=== PATIENT | male | born 1975 | race African-American/Black ===

== ENCOUNTER → 2020-08-21 | Outpatient (CLI) | payer BC ==
--- NOTE | 2020-08-21 16:42 | KCIC ---
Bilateral lower extremity arterial ultrasound History:Poor circulation, bilateral claudication Findings: Multiple grayscale, color, and duplex spectral analysis sonographic images were acquired of the lower extremity arteries bilaterally. There are no previous similar exams. There is scattered plaque bilaterally. There are abnormal monophasic waveforms throughout the lower extremity arteries bilaterally. No vessel occlusion is demonstrated. There are are relatively increased velocities of the anterior tibial arteries bilaterally compared with the more proximal vessels. Velocities in cm/sec: RIGHT Common femoral artery 170 Profunda femoris artery 82 Proximal SFA 171 Mid SFA 106 Distal SFA 99 Popliteal artery 96 Posterior tibial artery 109 Peroneal artery 34 Anterior tibial artery 113 Dorsalis pedis artery 96 LEFT: Common femoral artery 149 Profunda femoris artery 123 Proximal SFA 173 Mid SFA 124 Distal SFA 102 Popliteal artery 76 Posterior tibial artery 95 Peroneal artery 66 Anterior tibial artery 110 Dorsalis pedis artery 103 Impression: 1. There are diffuse abnormal monophasic waveforms throughout the lower extremities bilaterally, also scattered plaque. There could be a component of inflow disease. No vessel occlusion is demonstrated. There are increased velocities of anterior tibial arteries bilaterally suggestive of more proximal stenoses. Electronically signed by: Jim Santacruz MD (08/21/2020 4:40 PM) [facility] CENTERSimone
== END ==
LOC: KCIC US 15:21
PROVIDERS: ATTEND Family Medicine
DX: R09.89 Other specified symptoms and signs involving the circulatory and respiratory systems (principal); I73.9 Peripheral vascular disease, unspecified
CPT/HCPCS: 93925

== ENCOUNTER → 2020-09-21 | Outpatient (CLI) | payer BC ==
[~2020-09-21] VITALS: Ht 167.6 cm; Wt 102.1 kg
[~2020-09-21] MED LIST: INSU100V8 SQ; LISI10TA2 PO; REGADENOSON 0.4 MG/5 ML DISP.SYRIN. IV ONE
--- NOTE | 2020-09-21 15:42 | RAD ---
MR#: [id number] Date of Study: 09/21/2020 Ordering Physician: NICOLAS COX, Referring Physician: JONATHAN LUNA Tech: JEANETTE Xiao ARRT (R) (N) APPROVED REPORT Test Type: Pharmacological Stress Nurse/Tech: Dena Jorge RN Test Indications: Chest Pain Cardiac History: HTN, See EMR Medications: See EMR Medical History: DM, See EMR Resting ECG: SR Resting Heart Rate: 70 bpm Resting Blood Pressure: 141/79mmHg Pretest Chest Pain: No chest pain Nurse/Tech Notes Lungs CTA, Heart tones regular. Consent: The procedure was explained to the patient in lay terms. Informed consent was witnessed. Jhonny eout was entered into [employer]. History and Stress Test performed by RT Manuel (R) (N) Pharm. Details Pharmacologic stress testing was performed using 0.4mg per 5ml of regadenoson given intravenously ove r 7-10 seconds. Stress Symptoms No chest pain or symptoms. POST EXERCISE Reason for Termination: Infusion complete Max HR: 86 bpm Max Blood Pressure: 126/73mmHg Blood Pressure response to exercise: Normal blood pressure response during stress. Heart Rate response to exercise: WNL Chest Pain: No. Arrhythmia: No. ST Change: No. INTERPRETATION Stress EKG Conclusion: The resting EKG shows a mild sinus arrhythmia with minimal ST changes in the i nferior leads. The stress EKG shows no significant changes from baseline. No EKG evidence of stress-induced ischemia. Imaging Protocol IMAGE PROTOCOL: Rest Tc-99m/stress Tc-99m 1 day Rest: Stress: Viability: Radiopharm.Tc99m [id number] Sestamibi Urlc66xLg 31.2mCi Img Date 09/21/2020 09/21/2020 Inj-Img Trdv52xuv. 60min. Rest Admin Site:IV - Left AntecubitalAdministrator:JEANETTE Xiao, ANGELIKA (R)(N) Stress Admin Site: IV - Left AntecubitalAdministrator: RT Floridalma BlakeR)(N) STRESS DATA End Diast. Vol.103.0mlAv. Heart Rate73.0bpm End Syst. Vol.31.0mlCO Index BSA0.0L/min Myocardial Ggmz334.0gEject. Sxjedxkh85.0% Stress Rates Pk. Fill Rate3.27EDV/secLVtime Pk. Fill 193.62msec Pk. Empty Rate4.47ESV/secLVtime Pk. Xljuw129.10msec 1/3 Pk. Fill0.94EDV/sec Stress Scores Regional WT0.00Summed WT4.00 Regional WM0.00Summed WM1.00 LV Perfusion The stress scans showed no significant defects. The rest scans showed no significant defects. Nuclear imaging shows no reversible ischemia or infarct. Wall Motion Normal left ventricular systolic function with no regional wall motion abnormalities and an ejection fraction of greater than 70%. LV Perf. Quant 17 Seg. SSS0.00 17 Seg. SRS0.00 17 Seg. SDS0.00 Stress Defect Extent (% LAD)0.00Rest Defect Extent (% LAD)0.00Rev. Defect Extent (% LAD)0.00 Stress Defect Extent (% LCX) 0.00Rest Defect Extent (% LCX)0.00Rev. Defect Extent (% LCX)0.00 Stress Defect Extent (% RCA)0.00Rest Defect Extent (% RCA)0.00Rev. Defect Extent (% RCA)0.00 Stress Defect Extent (% SHAI)0.00Rest Defect Extent (% SHAI)0.00Rev. Defect Extent (% SHAI)0.00 Conclusion 1. No EKG evidence of stress-induced ischemia. 2. Nuclear imaging shows no reversible ischemia or infarct. 3. Normal left ventricular systolic function with an ejection fraction of greater than 70%. 4. Low risk Lexiscan nuclear stress test. Signed by : Arturo Walton MD Electronically Approved : 09/21/2020 15:41:35
== END ==
LOC: NM 09:27
PROVIDERS: ATTEND Internal Medicine Cardiovascular Disease
DX: I10 Essential (primary) hypertension (principal); I73.9 Peripheral vascular disease, unspecified
CPT/HCPCS: 78452; 93017; A9500; J2785

== ENCOUNTER 2020-09-24 07:08 | Outpatient (CLI) | payer BC ==
[~2020-09-24] VITALS: Ht 167.6 cm; Wt 102.1 kg
[2020-09-24] VITALS (11 sets, daily range): BP systolic 96–128; BP diastolic 58–96
[~2020-09-24 07:08] MED LIST changes: -REGADENOSON 0.4 MG/5 ML DISP.SYRIN. IV ONE
[2020-09-24] MEDS ORDERED: LIDOCAINE 1% Multi-Dose 20 ML VIAL. ONE (07:32)
[2020-09-24] MEDS ORDERED: IODIXANOL 320 MG/ML 100 ML VIAL. ONE (07:32)
[2020-09-24 07:59] LABS: HEMATOCRIT 44.3 % (39.0-53.0); HEMOGLOBIN 14.9 g/dL (13.0-17.5); RED BLOOD COUNT 5.28 x10^6/uL (4.30-5.70); RED CELL DISTRIBUTION WIDTH 14.7 % (11.5-14.5); WHITE BLOOD COUNT 7.8 x10^3/uL (4.0-11.0)
[2020-09-24 08:01] LABS: GFR 80.1; POTASSIUM 3.9 mmol/L (3.5-5.1)
[2020-09-24 08:12] LABS: PROTHROMBIN TIME PATIENT 12.8 SEC (11.7-14.0)
[2020-09-24] MEDS ORDERED: LISI1TAB37 PO (08:18)
[2020-09-24] MEDS ORDERED: INSU100I13 SQ (08:18)
[2020-09-24] MEDS ORDERED: INSU100I17 SQ (08:18)
[2020-09-24] MEDS ORDERED: ATOR40TA PO (08:18)
[2020-09-24] MEDS ORDERED: FENO145T3 PO (08:18)
[2020-09-24] MEDS ORDERED: fentaNYL PF VIAL 250 MCG/5 ML VIAL ONE (08:39)
[2020-09-24] MEDS ORDERED: MIDAZOLAM HCL/PF 5 MG/5 ML VIAL. ONE (08:39)
[2020-09-24] MEDS ORDERED: HEPARIN for IV BOLUS 10,000 UNIT/10 ML VIAL. ONE (08:40)
[2020-09-24] MEDS ORDERED: VERAPAMIL 5 MG/2 ML VIAL. ONE (08:40)
[2020-09-24] MEDS ORDERED: NITROGLYCERIN 200 MCG/2 ML SYRINGE FOR CATH/VASC LAB. ONE (08:40)
[2020-09-24] MEDS ORDERED: fentaNYL PF VIAL 250 MCG/5 ML VIAL IV ONE (09:00)
[2020-09-24] MEDS ORDERED: NITROGLYCERIN 200 MCG/2 ML SYRINGE FOR CATH/VASC LAB. IART ONE (09:00)
[2020-09-24] MEDS ORDERED: IODIXANOL 320 MG/ML 100 ML VIAL. IART ONE (09:00)
[2020-09-24] MEDS ORDERED: LIDOCAINE 1% Multi-Dose 20 ML VIAL. INJ ONE (09:00)
[2020-09-24] MEDS ORDERED: VERAPAMIL 5 MG/2 ML VIAL. IART ONE (09:00)
[2020-09-24] MEDS ORDERED: MIDAZOLAM HCL/PF 5 MG/5 ML VIAL. IV ONE (09:00)
[2020-09-24] MEDS ORDERED: HEPARIN for IV BOLUS 10,000 UNIT/10 ML VIAL. IART ONE (09:00)
--- NOTE | 2020-09-24 09:38 | PDOC ---
MODERATE SEDATION ASSESSMENT RISKS/ALTERNATIVES Risks/Alternatives Risks and alternatives of this type of sedation and procedure discussed with: RISK/ALTERNATIVES: Patient H & P ON CHART H & P H & P on chart and reviewed for co-morbid conditions and appropriate labs. H&P ON CHART: Yes STATUS PREG STATUS ASSESSED: N/A MEDS/ALLERGIES REVIEWED Meds/Allergies Reviewed Medications and Allergies including time and route of recently administered narcotics and sedatives. MEDS/ALLERGIES REVIEWED: Yes ASA RATING ASA RATING: II AIRWAY ASSESSMENT Airway Assessment Airway patency, oral function limitations, presence of caps, crowns, dentures, partials, and ability to extend neck assessed. AIRWAY ASSESSMENT: Yes MALLAMPATI SCORE MALLAMPATI SCORE: II PRE-SEDATION ASSESSMENT PRE-SEDATION ASSESSMENT: Yes NICOLAS COX MD Sep 24, 2020 09:38
[2020-09-24] MEDS ORDERED: IV 1/2 NORMAL SALINE 1,000 ML IV SCH (10:00)
--- NOTE | 2020-09-24 10:05 | CARD ---
MR#: [id number] Date of Study: 09/24/2020 Ordering Physician: NICOLAS KERN, Referring Physician: NICOLAS KERN Tech: Deannamarissa Erazo APPROVED REPORT Patient StatusOUT-PATIENT Medical Appointment Scheduler: Deanna Erazo Procedure(s) performed: Aortogram with bilateral lower extremity runoff fl time: 7.6 min dose: 84 gycm2 contrast: 69 ml moderate sedation: 48 mins INDICATION FOR PROCEDURE The indication(s) include : Leg pain, abnormal arterial duplex scan suggestive of significant periphe ral artery disease. PROCEDURE NARRATIVE After explaining the risk, benefits and alternative options, informed consent was obtained from patie nt. Patient was brought to the cardiac [employer] and his left wrist was prepped and draped in the usu al fashion after confirming a positive modified Markus's test. Arterial access was obtained in the le ft radial artery and a 6 Irish sheath was inserted. 6 Irish PV Multicurve catheter was then advanc ed under fluoroscopy guidance and with the tip positioned in the descending aorta, aorto iliac angiog cuco was performed. The catheter was then advanced into the right lower extremity and with the tip positioned in the right superficial femoral artery, selective right lower extremity angiography was p erformed. The catheter was retracted and then advanced into the left superficial femoral artery and selective left lower extremity angiography was performed. Patient tolerated the procedure well. Hem ostasis was achieved using TR band. There were no immediate complications. FINDINGS 1. No significant stenosis involving the distal descending aorta. 2. No significant stenosis involving bilateral common and external iliac arteries. 3. No significant stenosis involving bilateral common femoral arteries. The right superficial femor al artery showed 50% stenosis in the distal segment. The left superficial femoral artery did not william w any significant stenosis. 4. The popliteal arteries bilaterally did not show any significant stenosis. 5. There is three-vessel runoff below the knee bilaterally. Conclusion 50% stenosis involving the right superficial femoral artery without any lesions needing intervention. Recommendations Vascular risk factor modification. Signed by : Nicolas Kern, Electronically Approved : 09/24/2020 10:04:50
[2020-09-24] MEDS ORDERED: oxyCODONE/APAP 5/325 1 TAB TABLET ONE (10:07)
[2020-09-24] MEDS ORDERED: oxyCODONE/APAP 5/325 1 TAB TABLET PO ONE (10:15)
--- NOTE | 2020-09-24 12:21 | NUR ---
Discharge Note: PATRICIA ENNIS [facility] Discharge instructions and discharge home medications reviewed with Patient and Spouse: and a copy given. All questions have been answered and understanding verbalized. The following instructions and handouts were given: Radial site care and moderate sedation. Discontinued lines and drains: right wrist IV dc'd and tip intact. Patient discharged to home with spouse via personal vehicle.
== END 2020-09-24 12:06 | disposition home or self-care (01) ==
LOC: CCL 07:08
PROVIDERS: ATTEND Internal Medicine Cardiovascular Disease
DX: I73.9 Peripheral vascular disease, unspecified (principal); I10 Essential (primary) hypertension; E78.00 Pure hypercholesterolemia, unspecified; E11.42 Type 2 diabetes mellitus with diabetic polyneuropathy; F17.210 Nicotine dependence, cigarettes, uncomplicated; Z85.46 Personal history of malignant neoplasm of prostate; Z79.899 Other long term (current) drug therapy; Z79.4 Long term (current) use of insulin; Z98.890 Other specified postprocedural states; Z20.828 Contact with and (suspected) exposure to other viral communicable diseases
CPT/HCPCS: 36246; 36415; 75625; 75716; 80048; 85027; 85610; 87426; 99152; 99153; C1769; C1892; C9803; J1644; J2250; J3010; J3490; Q9967; U0003

== ENCOUNTER → 2021-07-12 | Outpatient (CLI) | payer BC ==
[2020-09-24 12:01] VITALS: BP 96/61
[~2021-07-12] MED LIST changes: +ATOR40TA PO; +FENO145T3 PO; +INSU100I13 SQ; +INSU100I17 SQ; +LISI10TA16 PO; -LISI10TA2 PO; +LISI1TAB37 PO
--- NOTE | 2021-07-12 13:40 | KCIC ---
EXAM: Right shoulder, 3 views. HISTORY: Pain. COMPARISON: None. FINDINGS: 3 views of the right shoulder obtained. There is no fracture, dislocation or subluxation. T here is minimal distal clavicular and glenohumeral joint spurring. IMPRESSION: Minimal right shoulder osteoarthritis. No acute osseous finding. Electronically signed by: Shanna Kennedy MD (07/12/2021 1:38 PM) [id number]
== END ==
LOC: KCIC 12:53
PROVIDERS: ATTEND Family Medicine
DX: M25.511 Pain in right shoulder (principal)
CPT/HCPCS: 73030